=== PATIENT | female | born 1965 | race Caucasian/White ===

== ENCOUNTER 2016-10-09 15:49 | Emergency (ER) | payer MEDICARE ==
[~2016-10-09] VITALS: Ht 154.9 cm; Wt 53.5 kg
[~2016-10-09 15:49] MED LIST: AMITRIPTYLINE 550 MG PO; AMITRIPTYLINE25 MG PO; AMITRIPTYLINE50 MG PO; AMLODIPINE10 MG PO; BACTRIM DS TAB1 EACH PO; BENADRYL 25MG C25 MG PO; CUBICIN 500 MG500 MG IV; CYMBALTA60 MG PO; DILAUDID1 MG/M1 IJ; EFFEXOR XR 75MG75 MG PO; FUROSEMIDE 40MG40 MG FT; INVANZ 1 GM1 GM IV; KEFLEX 500MG.500 MG PO; LASIX40 MG PO; LEVOTHROID0.025 MG PO; LISINOPRIL 5MG T5 MG PO; LISINOPRIL2.5 MG PO; LYRICA 100 MG100 MG PO; MUPIROCIN 2% O1 INCH TP; NAPROSYN375 MG PO; NEXIUM40 MG PO; OMEPRAZOLE20 M1 PO; PHENERGAN25 M3 PO; POLYMYXIN B/TRI10 ML OP; PROAIR HFA0.09 MG/AC IH; SIMVASTATIN20 MG PO; SYNTHROID 0.00.05 MG PO; TRAZODONE 50MG50 MG PO; VANCOMYCIN HC1000 MG IV; VENLAFAXINE75 M1 PO; VENTOLIN H0.09 MG/Ac IH
--- OUTSIDE RECORDS SUMMARY | 2016-10-09 15:57 | External Medical Summary Rpt ---
Author Author , CONNOR Vivas CONNOR Address Unknown Phone [email or web address] Care Team Providers Care [employer] Ware [employer] Name Role Phone Reg Tovar MD, Unavailable Unavailable Reg Wall MD, Unavailable Unavailable Hero Gonzalez MD, Unavailable Unavailable Sherri Gonzalez MD Purpose Continuity of Care Document - 11-15-2012 through 2016 Problems Code Diagnosis DOS Provider Status 244.9 Hypothyroid [facility] 272.4 Hyperlipide [facility] [id number] Fever [facility] 401.9 Essential [place] hypertensio [facility] n [facility] [id number] Obesity [facility] 457.1 Chronic [facility] lymphedema [facility] [id number] Active [facility] 682.6 Cellulitis [place] and abscess [facility] leg [facility] 682.9 Cellulitis [facility] 780.96 Chronic [facility] [id number] [facility] I10 ESSENTIAL (PRIMARY) HYPERTENSIO N I63.9 CEREBRAL INFARCTION, UNSPECIFIED I89.0 LYMPHEDEMA, NOT ELSEWHERE CLASSIFIED L03.119 CELLULITIS OF UNSPECIFIED PART OF LIMB L03.90 CELLULITIS, UNSPECIFIED R07.9 CHEST PAIN, UNSPECIFIED R10.13 EPIGASTRIC PAIN S00.83XA CONTUSION OF OTHER PART OF HEAD, INITIAL ENCOUNTER S06.0X9A CONCUSSION W LOSS OF CONSCIOUSNE SS OF UNSP DURATION, INIT S60.229A CONTUSION OF UNSPECIFIED HAND, INITIAL ENCOUNTER S90.30XA CONTUSION OF UNSPECIFIED FOOT, INITIAL ENCOUNTER Allergies, Adverse Reactions, Alerts Type Allergy to substance Adverse Reaction to Substance Substance Reaction Severity NO KNOWN ALLERGIES Unknown Unknown Medications Na ND Rx Da Fi Fi Am Da Di Ph RX Ph St me C No te ll ll ou ys ag ar # ys at rm s nt no ma ic us Or Da si cy ia de te s n re d IN 00 10 0 No VA 00 -0 NZ 63 9- Lo 1 84 20 ng 57 13 er GM 1 Ac AD ti D- ve VA NT AG E AL SO 00 10 0 No DI 40 -0 UM 97 9- Lo 10 20 ng CH 16 13 er LO 6 RI Ac DE ti ve 0. 9% SO LN CU 67 10 2 No BI 91 -0 CI 90 8- Lo N 01 20 ng 50 10 13 er 0 1 MG Ac ti ve AL SO 00 10 2 No DI 40 -0 UM 97 8- Lo 98 20 ng CH 43 13 er LO 6 RI Ac DE ti ve 0. 9% SO KEY TI ON LO 00 10 2 No VE 07 -0 NO 50 8- Lo X 62 20 ng 40 04 13 er 1 MG Ac /0 ti .4 ve ML SY RI NG E PA 51 10 2 No NT 07 -0 OP 90 8- Lo RA 05 20 ng ZO 12 13 er LE 0 Ac SO ti D ve DR 40 MG TA B Du 00 10 2 No lo 00 -0 xe 23 8- Lo ti 24 20 ng ne 03 13 er 3 30 Ac MG ti ve Ca ps ul e FU 51 10 2 No RO 07 -0 SE 90 8- Lo VT 07 20 ng DE 32 13 er 0 40 Ac ti MG ve TA BL ET Li 00 10 2 No si 17 -0 no 23 8- Lo pr 75 20 ng il 81 13 er 0 5M Ac G ti Ta ve bl et SY 00 10 2 No NT 07 -0 HR 44 8- Lo OI 34 20 ng D 19 13 er 25 0 Ac MC ti G ve TA BL ET PI 00 10 2 No PE 40 -0 RA 93 7- Lo CI 37 20 ng L- 81 13 er TA 3 ZO Ac BA ti CT ve 3. 37 5 GM VL SO 00 10 3 No DI 40 -0 UM 97 7- Lo 98 20 ng CH 30 13 er LO 9 RI Ac DE ti ve 0. 9% SO KEY TI ON FU 00 10 0 No RO 40 -0 SE 96 7- Lo VT 10 20 ng DE 20 13 er 4 40 Ac ti MG ve /4 ML AL Sa 63 10 3 No li 80 -0 ne 70 7- Lo 10 20 ng Fl 07 13 er us 5 h Ac 10 ti ML ve Sy ri ng e MA 00 10 0 No PA 90 -0 P 41 7- Lo 32 98 20 ng 5 26 13 er MG 1 Ac TA ti BL ve ET Ib 62 10 0 No up 58 -0 ro 40 7- Lo fe 74 20 ng n 70 13 er 60 1 0M Ac G ti Ta ve bl et Sa 63 10 0 No li 80 -0 ne 70 7- Lo 10 20 ng Fl 07 13 er us 5 h Ac 10 ti ML ve Sy ri ng e MO 00 10 3 No OM 64 -0 ET 11 7- Lo MONTERROSO 49 20 ng ZI 53 13 er NE 5 Ac 25 ti ve MG /M L AM PU L LY 00 10 3 No RI 07 -0 CA 11 7- Lo 01 20 ng 10 56 13 er 0 8 MG Ac ti CA ve PS UL E AM 51 10 3 No IT 07 -0 RI 90 7- Lo PT 10 20 ng YL 72 13 er IN 0 E Ac HC ti L ve 25 MG TA B MO 00 10 1 No OT 00 -0 ON 80 7- Lo IX 84 20 ng 40 13 er 40 2 Ac MG ti ve KNIGHT SP EN SI ON DI 00 10 3 No PH 90 -0 EN 45 7- Lo HY [address] 66 13 er AM 1 IN Ac E ti 25 ve MG CA PS UL E SO 00 10 0 No DI 40 -0 UM 97 6- Lo 98 20 ng CH 30 13 er LO 9 RI Ac DE ti ve 0. 9% SO KEY TI ON DE 00 10 0 No XT 40 -0 RO 97 6- Lo SE 51 20 ng 71 13 er 50 6 %- Ac WA ti TE ve R SY RI NG E Sa 63 10 0 No li 80 -0 ne 70 6- Lo 10 20 ng Fl 07 13 er us 5 h Ac 10 ti ML ve Sy ri ng e MA 00 10 0 No PA 90 -0 P 41 6- Lo 32 98 20 ng 5 26 13 er MG 1 Ac TA ti BL ve ET Sa 63 10 1 No li 80 -0 ne 70 4- Lo 10 20 ng Fl 07 13 er us 5 h Ac 10 ti ML ve Sy ri ng e FU 00 10 0 No RO 40 -0 SE 96 4- Lo VT 10 20 ng DE 20 13 er 4 40 Ac ti MG ve /4 ML AL MO 51 09 1 No OM 07 -0 ET 90 6- Lo MONTERROSO 89 20 ng ZI 52 13 er NE 0 Ac 25 ti ve MG TA BL ET VA 00 09 2 No NC 40 -0 OM 96 5- Lo YC 53 20 ng IN 30 13 er 1 1 Ac GM ti ve AL SO 00 09 2 No DI 40 -0 UM 97 5- Lo 98 20 ng CH 30 13 er LO 2 RI Ac DE ti ve 0. 9% SO KEY TI ON Du 00 09 0 No lo 00 -0 xe 23 5- Lo ti 24 20 ng ne 03 13 er 3 30 Ac MG ti ve Ca ps ul e FU 51 09 2 No RO 07 -0 SE 90 5- Lo VT 07 20 ng DE 32 13 er 0 40 Ac ti MG ve TA BL ET Li 00 09 2 No si 17 -0 no 23 5- Lo pr 75 20 ng il 81 13 er 0 5M Ac G ti Ta ve bl et Du 00 09 2 No lo 00 -0 xe 23 5- Lo ti 24 20 ng ne 03 13 er 3 30 Ac MG ti ve Ca ps ul e IN [address] -0 RU 5- Lo CT 20 ng IO 13 er N IN Ac FO ti RM ve AT IO N EF 00 09 2 No FE 00 -0 XO 80 5- Lo R 83 20 ng XR 30 13 er 3 75 Ac ti MG ve CA PS UL E VA 00 09 1 No NC 40 -0 OM 96 4- Lo YC 53 20 ng IN 30 13 er 1 1 Ac GM ti ve AL SO 00 09 3 No DI 40 -0 UM 97 4- Lo 98 20 ng CH 42 13 er LO 0 RI Ac DE ti ve 0. 9% SO KEY TI ON LO 00 09 3 No VE 07 -0 NO 50 4- Lo X 62 20 ng 40 04 13 er 1 MG Ac /0 ti .4 ve ML SY RI NG E SY 00 09 3 No NT 07 -0 HR 44 4- Lo OI 34 20 ng D 19 13 er 25 0 Ac MC ti G ve TA BL ET MO 00 09 2 No OM 64 -0 ET 11 4- Lo MONTERROSO 49 20 ng ZI 53 13 er NE 5 Ac 25 ti ve MG /M L AM PU L AM 51 09 3 No IT 07 -0 RI 90 4- Lo PT 10 20 ng YL 72 13 er IN 0 E Ac HC ti L ve 25 MG TA B MU 45 09 3 No PI 80 -0 RO 20 4- Lo CI 11 20 ng N 22 13 er 2% 2 Ac OI ti NT ve ME NT PA 51 09 3 No NT 07 -0 OP 90 4- Lo RA 05 20 ng ZO 12 13 er LE 0 Ac SO ti D ve DR 40 MG TA B MO 51 09 3 No AV 07 -0 90 4- Lo TA 78 20 ng TI 22 13 er N 0 SO Ac DI ti UM ve 40 MG TA B LY 00 09 3 No RI 07 -0 CA 11 4- Lo 01 20 ng 10 56 13 er 0 8 MG Ac ti CA ve PS UL E TR 51 09 3 No IA 67 -0 MC 21 4- Lo IN 28 20 ng OL 20 13 er ON 2 E Ac 0. ti 1% ve CR EA M Vital Signs 12-21-2012 15:55 Name Value Interpretat Reference Comment ion Range Body 97.6 [degF] Temperature BP 57 mm[Hg] Diastolic BP Systolic 97 mm[Hg] Heart 77 /min Rate/Pulse Respiratory 18 /min Rate 12-21-2012 08:00 Name Value Interpretat Reference Comment ion Range O2% 98 % 12-18-2012 19:15 Name Value Interpretat Reference Comment ion Range Height 157.48 cm Weight 99.792 kg Measured 12-18-2012 15:34 Name Value Interpretat Reference Comment ion Range Body 99.6 [degF] Temperature BP 108 mm[Hg] Diastolic BP Systolic 150 mm[Hg] Heart 130 /min Rate/Pulse O2% 96 % Respiratory 40 /min Rate Weight 0 [oz_av] Measured 12-17-2012 20:20 Name Value Interpretat Reference Comment ion Range Body 99.7 [degF] Temperature BP 81 mm[Hg] Diastolic BP Systolic 162 mm[Hg] Heart 100 /min Rate/Pulse O2% 98 % Respiratory 20 /min Rate 12-17-2012 18:47 Name Value Interpretat Reference Comment ion Range Body 102.9 Temperature [degF] BP 79 mm[Hg] Diastolic BP Systolic 150 mm[Hg] Heart 96 /min Rate/Pulse O2% 98 % Respiratory 20 /min Rate 12-16-2012 00:28 Name Value Interpretat Reference Comment ion Range BP 76 mm[Hg] Diastolic BP Systolic 134 mm[Hg] Heart 82 /min Rate/Pulse O2% 99 % Respiratory 18 /min Rate 12-15-2012 20:30 Name Value Interpretat Reference Comment ion Range Body 98.0 [degF] Temperature BP 92 mm[Hg] Diastolic BP Systolic 142 mm[Hg] Heart 88 /min Rate/Pulse O2% 98 % Respiratory 26 /min Rate 11-30-2012 14:38 Name Value Interpretat Reference Comment ion Range Body 98.2 [degF] Temperature BP 74 mm[Hg] Diastolic BP Systolic 129 mm[Hg] Heart 77 /min Rate/Pulse O2% 99 % Respiratory 20 /min Rate 11-18-2012 07:48 Name Value Interpretat Reference Comment ion Range Body 98.6 [degF] Temperature BP 70 mm[Hg] Diastolic BP Systolic 123 mm[Hg] Heart 83 /min Rate/Pulse O2% 92 % Respiratory 20 /min Rate 11-15-2012 15:07 Name Value Interpretat Reference Comment ion Range O2% 96 % 11-15-2012 10:05 Name Value Interpretat Reference Comment ion Range Body 97.5 [degF] Temperature BP 65 mm[Hg] Diastolic BP Systolic 111 mm[Hg] Heart 74 /min Rate/Pulse Height 154.94 cm Respiratory 18 /min Rate Weight 211 [lb_av] Measured Weight 95.709 kg Measured Results Labs Lab Lab Date Result Refere Interp Status Commen Order Detail nces retati t Range on Drugs identified in Urine by Screen method (08-24-2016 16:04) Ampheta NEGATIV <1000 complet mine 017 E ed [Presen 16:04 ce] in Urine by Screen method 11-Hydr NEGATIV <50 complet oxy 017 E ed delta-9 16:04 tetrahy drocann abinol [Presen ce] in Unspeci fied specime n COMPREHENSIVE METABOLIC PANEL (12-20-2012 05:30) Glucose 85 74-106 complet 013 mg/dL ed Bld-mCn 05:30 c BUN 13 7-18 complet Bld-mCn 013 mg/dL ed c 05:30 Creat 1.0 0.6-1.0 complet SerPl-m 013 mg/dL ed Cnc 05:30 ESTIMAT 108 50-200 complet ED 013 ML/MIN ed CREATIN 05:30 INE CLEARAN CE GFR 59 59- complet (ESTIMA 013 ML/MIN ed WILFREDO) 05:30 Sodium 139 136-145 complet SerPl-s 013 mmoL/L ed Cnc 05:30 Potassi 3.4 3.5-5.1 complet um 013 mmoL/L ed SerPl-s 05:30 Cnc Chlorid 105 98-107 complet e 013 mmoL/L ed SerPl-s 05:30 Cnc CO2 26 21.0-32 complet SerPl-s 013 mmoL/L .0 ed Cnc 05:30 Calcium 6.9 8.5-10. complet 013 mg/dL 1 ed SerPl-m 05:30 Cnc Prot 5.4 6.4-8.2 complet SerPl-m 013 gm/dL ed Cnc 05:30 Albumin 2.2 3.4-5.0 complet 013 gm/dL ed SerPl-m 05:30 Cnc Globuli 3.2 1.3-3.2 complet n 013 gm/dL ed Ser-mCn 05:30 c Albumin 0.7 UNK 1.1-1.8 complet /Glob 013 ed SerPl-m 05:30 Rto Bilirub 0.3 0.2-1.0 complet 013 mg/dL ed SerPl-m 05:30 Cnc AST 31 U/L 15-37 complet SerPl-c 013 ed Cnc 05:30 ALT 34 U/L 30-65 complet SerPl-c 013 ed Cnc 05:30 ALP 98 U/L 50-136 complet SerPl-c 013 ed Cnc 05:30 CBC with AUTO DIFF (12-20-2012 05:30) WBC # 12-20-2 2.6 4.8-10. complet Bld 013 K/MM3 8 ed Auto 05:30 RBC # 12-20-2 2.96 4.2-5.4 complet Bld 013 M/mm3 ed Auto 05:30 Hgb 8.3 12.2-16 complet Bld-mCn 013 g/dL .2 ed c 05:30 Hct Fr 26.1 % 37.0-47 complet Bld 013 .0 ed 05:30 MCV RBC 88.2 fl 82.2-97 complet 013 .8 ed 05:30 MCH RBC 28.1 pg 27-31.2 complet Qn 013 ed Auto 05:30 MEAN 31.8 31.8-35 complet CORPUSC 013 g/dl .4 ed ULAR 05:30 HGB CONC RDW RBC 16.7 % 11.5-17 complet Auto 013 .5 ed 05:30 Platele 12-20-2 99 142-424 complet t Bld 013 K/mm3 ed Ql 05:30 Manual MEAN 9.4 fl 7.4-10. complet PLATELE 013 4 ed T 05:30 VOLUME Granulo 49.3 % 37.0-80 complet cytes 013 .0 ed Fr Bld 05:30 Auto LYMPH % 09-2 35.8 % 10-50.0 complet 013 ed 05:30 Monocyt 12-20-2 9.3 % 1.7-9.3 complet es Fr 013 ed Bld 05:30 Auto Eosinop 5.1 % 0.1-12. complet hil Fr 013 0 ed Bld 05:30 Auto Basophi 0.5 % 0.1-2.0 complet ls Fr 013 ed Bld 05:30 Auto Granulo 1.3 1.8-7.8 complet cytes # 013 K/mm3 ed Bld 05:30 Auto Lymphoc 12-20-2 0.9 0.7-4.5 complet ytes Fr 013 K/mm3 ed Bld 05:30 Auto Monocyt 12-20-2 0.2 0.1-1.0 complet es # 013 K/mm3 ed Bld 05:30 Auto Eosinop 12-20-2 0.1 0.0-0.4 complet hil # 013 K/mm3 ed Bld 05:30 Auto Basophi 12-20-2 0.0 0-0.2 complet ls # 013 K/MM3 ed Bld 05:30 Auto BASIC METABOLIC PANEL (12-19-2012 06:35) Glucose 89 74-106 complet 013 mg/dL ed Bld-mCn 06:35 c BUN 14 7-18 complet Bld-mCn 013 mg/dL ed c 06:35 Creat 1.2 0.6-1.0 complet SerPl-m 013 mg/dL ed Cnc 06:35 ESTIMAT 90 50-200 complet ED 013 ML/MIN ed CREATIN 06:35 INE CLEARAN CE GFR 48 59- complet (ESTIMA 013 ML/MIN ed WILFREDO) 06:35 Sodium 139 136-145 complet SerPl-s 013 mmoL/L ed Cnc 06:35 Potassi 3.5 3.5-5.1 complet um 013 mmoL/L ed SerPl-s 06:35 Cnc Chlorid 104 98-107 complet e 013 mmoL/L ed SerPl-s 06:35 Cnc CO2 27 21.0-32 complet SerPl-s 013 mmoL/L .0 ed Cnc 06:35 Calcium 7.0 8.5-10. complet 013 mg/dL 1 ed SerPl-m 06:35 Cnc CBC with AUTO DIFF (12-19-2012 06:35) WBC # 08-2 2.2 4.8-10. complet Bld 013 K/MM3 8 ed Auto 06:35 RBC # 08-2 3.23 4.2-5.4 complet Bld 013 M/mm3 ed Auto 06:35 Hgb 9.0 12.2-16 complet Bld-mCn 013 g/dL .2 ed c 06:35 Hct Fr 29.1 % 37.0-47 complet Bld 013 .0 ed 06:35 MCV RBC 90.2 fl 82.2-97 complet 013 .8 ed 06:35 MCH RBC 27.8 pg 27-31.2 complet Qn 013 ed Auto 06:35 MEAN 30.8 31.8-35 complet CORPUSC 013 g/dl .4 ed ULAR 06:35 HGB CONC RDW RBC 17.0 % 11.5-17 complet Auto 013 .5 ed 06:35 Platele 81 142-424 complet t Bld 013 K/mm3 ed Ql 06:35 Manual MEAN 10.9 fl 7.4-10. complet PLATELE 013 4 ed T 06:35 VOLUME Granulo 73.2 % 37.0-80 complet cytes 013 .0 ed Fr Bld 06:35 Auto LYMPH % 08-2 17.9 % 10-50.0 complet 013 ed 06:35 Monocyt 10-08-2 6.3 % 1.7-9.3 complet es Fr 013 ed Bld 06:35 Auto Eosinop 10-08-2 2.0 % 0.1-12. complet hil Fr 013 0 ed Bld 06:35 Auto Basophi 10-08-2 0.4 % 0.1-2.0 complet ls Fr 013 ed Bld 06:35 Auto Granulo 10-08-2 1.6 1.8-7.8 complet cytes # 013 K/mm3 ed Bld 06:35 Auto Lymphoc 10-08-2 0.4 0.7-4.5 complet ytes Fr 013 K/mm3 ed Bld 06:35 Auto Monocyt 10-08-2 0.1 0.1-1.0 complet es # 013 K/mm3 ed Bld 06:35 Auto Eosinop 10-08-2 0.0 0.0-0.4 complet hil # 013 K/mm3 ed Bld 06:35 Auto Basophi 10-08-2 0.0 0-0.2 complet ls # 013 K/MM3 ed Bld 06:35 Auto Glucose BldC [facility] (12-18-2012 18:08) Glucose 97 70-110 complet BldC 013 mg/dl ed Glucomt 18:08 r-[facility] URINALYSIS/COMPLETE (12-18-2012 17:00) URINE LIGHT YELLOW complet COLOR 013 YELLOW ed 17:00 URINE Sl CLEAR complet APPEARA 013 Cloudy ed NCE 17:00 URINE NEGATIV NEG complet GLUCOSE 013 E ed - 17:00 DIPSTIC K URINE NEGATIV NEG complet BILIRUB 013 E ed IN - 17:00 DIPSTIC K URINE NEGATIV NEG complet KETONE 013 E mg/dL ed 17:00 URINE 1.015 1.005-1 complet SPECIFI 013 UNK .030 ed C 17:00 GRAVITY URINE NEGATIV NEG complet BLOOD 013 E ed 17:00 URINE 5.5 UNK 5.0-8.5 complet PH 013 ed 17:00 URINE NEGATIV NEG complet PROTEIN 013 E mg/dL ed - 17:00 DIPSTIC K URINE 0.2 NEG complet UROBILI 013 E.U./dL ed NOGEN - 17:00 DIPSTIC K URINE NEGATIV NEG complet NITRATE 013 E ed - 17:00 DIPSTIC K URINE NEGATIV NEG complet LEUK 013 E ed ESTERAS 17:00 E URINE OCC O complet WBC 013 wbc/hpf ed 17:00 URINE OCC 0-5 complet SQUAMOU 013 #/hpf ed S CELLS 17:00 URINE 1+ O complet BACTERI 013 ed A 17:00 BASIC METABOLIC PANEL (12-18-2012 15:50) Glucose 57 74-106 complet 013 mg/dL ed Bld-mCn 15:50 c BUN 6 mg/dL 7-18 complet Bld-mCn 013 ed c 15:50 Creat 1.0 0.6-1.0 complet SerPl-m 013 mg/dL ed Cnc 15:50 ESTIMAT 88 50-200 complet ED 013 ML/MIN ed CREATIN 15:50 INE CLEARAN CE GFR 59 59- complet (ESTIMA 013 ML/MIN ed WILFREDO) 15:50 Sodium 139 136-145 complet SerPl-s 013 mmoL/L ed Cnc 15:50 Potassi 3.8 3.5-5.1 complet um 013 mmoL/L ed SerPl-s 15:50 Cnc Chlorid 103 98-107 complet e 013 mmoL/L ed SerPl-s 15:50 Cnc CO2 24 21.0-32 complet SerPl-s 013 mmoL/L .0 ed Cnc 15:50 Calcium 7.4 8.5-10. complet 013 mg/dL 1 ed SerPl-m 15:50 Cnc CBC with AUTO DIFF (12-18-2012 15:50) WBC # 12-18-2 3.8 4.8-10. complet Bld 013 K/MM3 8 ed Auto 15:50 RBC # 12-18-2 4.00 4.2-5.4 complet Bld 013 M/mm3 ed Auto 15:50 Hgb 10-07-2 11.2 12.2-16 complet Bld-mCn 013 g/dL .2 ed c 15:50 Hct Fr 12-18-2 35.7 % 37.0-47 complet Bld 013 .0 ed 15:50 MCV RBC 10-07-2 89.3 fl 82.2-97 complet 013 .8 ed 15:50 MCH RBC 07-2 28.0 pg 27-31.2 complet Qn 013 ed Auto 15:50 MEAN 07-2 31.4 31.8-35 complet CORPUSC 013 g/dl .4 ed ULAR 15:50 HGB CONC RDW RBC 07-2 16.8 % 11.5-17 complet Auto 013 .5 ed 15:50 Platele -07-2 118 142-424 complet t Bld 013 K/mm3 ed Ql 15:50 Manual MEAN 07-2 8.7 fl 7.4-10. complet PLATELE 013 4 ed T 15:50 VOLUME Granulo -07-2 84.8 % 37.0-80 complet cytes 013 .0 ed Fr Bld 15:50 Auto LYMPH % 10-07-2 12.0 % 10-50.0 complet 013 ed 15:50 Monocyt 10-07-2 2.5 % 1.7-9.3 complet es Fr 013 ed Bld 15:50 Auto Eosinop 10-07-2 0.6 % 0.1-12. complet hil Fr 013 0 ed Bld 15:50 Auto Basophi 10-07-2 0.2 % 0.1-2.0 complet ls Fr 013 ed Bld 15:50 Auto Granulo 10-07-2 3.2 1.8-7.8 complet cytes # 013 K/mm3 ed Bld 15:50 Auto Lymphoc 10-07-2 0.4 0.7-4.5 complet ytes Fr 013 K/mm3 ed Bld 15:50 Auto Monocyt 10-07-2 0.1 0.1-1.0 complet es # 013 K/mm3 ed Bld 15:50 Auto Eosinop 10-07-2 0.0 0.0-0.4 complet hil # 013 K/mm3 ed Bld 15:50 Auto Basophi 10-07-2 0.0 0-0.2 complet ls # 013 K/MM3 ed Bld 15:50 Auto Glucose dC [facility] (12-17-2012 19:50) Glucose 108 70-110 complet BldC 013 mg/dl ed Glucomt 19:50 r-[facility] COMPREHENSIVE METABOLIC PANEL (12-17-2012 18:30) Glucose 71 74-106 complet 013 mg/dL ed Bld-mCn 18:30 c BUN 6 mg/dL 7-18 complet Bld-mCn 013 ed c 18:30 Creat 0.9 0.6-1.0 complet SerPl-m 013 mg/dL ed Cnc 18:30 ESTIMAT 97 50-200 complet ED 013 ML/MIN ed CREATIN 18:30 INE CLEARAN CE GFR 67 59- complet (ESTIMA 013 ML/MIN ed WILFREDO) 18:30 Sodium 142 136-145 complet SerPl-s 013 mmoL/L ed Cnc 18:30 Potassi 3.9 3.5-5.1 complet um 013 mmoL/L ed SerPl-s 18:30 Cnc Chlorid 107 98-107 complet e 013 mmoL/L ed SerPl-s 18:30 Cnc CO2 27 21.0-32 complet SerPl-s 013 mmoL/L .0 ed Cnc 18:30 Calcium 7.5 8.5-10. complet 013 mg/dL 1 ed SerPl-m 18:30 Cnc Prot 6.4 6.4-8.2 complet SerPl-m 013 gm/dL ed Cnc 18:30 Albumin 2.7 3.4-5.0 complet 013 gm/dL ed SerPl-m 18:30 Cnc Globuli 3.7 1.3-3.2 complet n 013 gm/dL ed Ser-mCn 18:30 c Albumin 0.7 UNK 1.1-1.8 complet /Glob 013 ed SerPl-m 18:30 Rto Bilirub 0.5 0.2-1.0 complet 013 mg/dL ed SerPl-m 18:30 Cnc AST 25 U/L 15-37 complet SerPl-c 013 ed Cnc 18:30 ALT 25 U/L 30-65 complet SerPl-c 013 ed Cnc 18:30 ALP 109 U/L 50-136 complet SerPl-c 013 ed Cnc 18:30 LIPASE (12-17-2012 18:30) LIPASE 87 U/L 73-393 complet 013 ed 18:30 CBC with AUTO DIFF (12-17-2012 18:30) WBC # 1006-2 4.6 4.8-10. complet Bld 013 K/MM3 8 ed Auto 18:30 RBC # 12-17-2 3.41 4.2-5.4 complet Bld 013 M/mm3 ed Auto 18:30 Hgb 12-17- 9.8 12.2-16 complet Bld-mCn 013 g/dL .2 ed c 18:30 Hct Fr 30.4 % 37.0-47 complet Bld 013 .0 ed 18:30 MCV RBC 89.1 fl 82.2-97 complet 013 .8 ed 18:30 MCH RBC 28.6 pg 27-31.2 complet Qn 013 ed Auto 18:30 MEAN 32.1 31.8-35 complet CORPUSC 013 g/dl .4 ed ULAR 18:30 HGB CONC RDW RBC 12-17- 17.1 % 11.5-17 complet Auto 013 .5 ed 18:30 Platele 127 142-424 complet t Bld 013 K/mm3 ed Ql 18:30 Manual MEAN 9.0 fl 7.4-10. complet PLATELE 013 4 ed T 18:30 VOLUME Granulo 86.2 % 37.0-80 complet cytes 013 .0 ed Fr Bld 18:30 Auto LYMPH % 12-17-2 8.8 % 10-50.0 complet 013 ed 18:30 Monocyt 12-17-2 3.2 % 1.7-9.3 complet es Fr 013 ed Bld 18:30 Auto Eosinop 2 1.6 % 0.1-12. complet hil Fr 013 0 ed Bld 18:30 Auto Basophi 10-06-2 0.2 % 0.1-2.0 complet ls Fr 013 ed Bld 18:30 Auto Granulo 12-17-2 3.9 1.8-7.8 complet cytes # 013 K/mm3 ed Bld 18:30 Auto Lymphoc 12-17-2 0.4 0.7-4.5 complet ytes Fr 013 K/mm3 ed Bld 18:30 Auto Monocyt 06-2 0.1 0.1-1.0 complet es # 013 K/mm3 ed Bld 18:30 Auto Eosinop 12-17-2 0.1 0.0-0.4 complet hil # 013 K/mm3 ed Bld 18:30 Auto Basophi 12-17-2 0.0 0-0.2 complet ls # 013 K/MM3 ed Bld 18:30 Auto URINALYSIS/COMPLETE (12-15-2012 20:20) URINE 12-15- YELLOW YELLOW complet COLOR 013 ed 20:20 URINE CLEAR CLEAR complet APPEARA 013 ed NCE 20:20 URINE NEGATIV NEG complet GLUCOSE 013 E ed - 20:20 DIPSTIC K URINE 1+ NEG complet BILIRUB 013 ed IN - 20:20 DIPSTIC K URINE 12-15-2 1+ NEG complet KETONE 013 mg/dL ed 20:20 URINE 2 1.025 1.005-1 complet SPECIFI 013 UNK .030 ed C 20:20 GRAVITY URINE NEGATIV NEG complet BLOOD 013 E ed 20:20 URINE 7.0 UNK 5.0-8.5 complet PH 013 ed 20:20 URINE 12-15-2 TRACE NEG complet PROTEIN 013 mg/dL ed - 20:20 DIPSTIC K URINE 12-15-2 4.0 NEG complet UROBILI 013 E.U./dL ed NOGEN - 20:20 DIPSTIC K URINE 12-15-2 NEGATIV NEG complet NITRATE 013 E ed - 20:20 DIPSTIC K URINE 12-15-2 NEGATIV NEG complet LEUK 013 E ed ESTERAS 20:20 E URINE 12-15- 5-10 0-5 complet SQUAMOU 013 #/hpf ed S CELLS 20:20 URINE 10-04-2 TRACE O complet BACTERI 013 ed A 20:20 COMPREHENSIVE METABOLIC PANEL (12-15-2012 20:00) Glucose 104 74-106 complet 013 mg/dL ed Bld-mCn 20:00 c BUN 8 mg/dL 7-18 complet Bld-mCn 013 ed c 20:00 Creat 0.9 0.6-1.0 complet SerPl-m 013 mg/dL ed Cnc 20:00 ESTIMAT 109 50-200 complet ED 013 ML/MIN ed CREATIN 20:00 INE CLEARAN CE GFR 67 59- complet (ESTIMA 013 ML/MIN ed WILFREDO) 20:00 Sodium 143 136-145 complet SerPl-s 013 mmoL/L ed Cnc 20:00 Potassi 4.0 3.5-5.1 complet um 013 mmoL/L ed SerPl-s 20:00 Cnc Chlorid 108 98-107 complet e 013 mmoL/L ed SerPl-s 20:00 Cnc CO2 28 21.0-32 complet SerPl-s 013 mmoL/L .0 ed Cnc 20:00 Calcium 7.7 8.5-10. complet 013 mg/dL 1 ed SerPl-m 20:00 Cnc Prot 6.3 6.4-8.2 complet SerPl-m 013 gm/dL ed Cnc 20:00 Albumin 2.7 3.4-5.0 complet 013 gm/dL ed SerPl-m 20:00 Cnc Globuli 3.6 1.3-3.2 complet n 013 gm/dL ed Ser-mCn 20:00 c Albumin 0.8 UNK 1.1-1.8 complet /Glob 013 ed SerPl-m 20:00 Rto Bilirub 0.5 0.2-1.0 complet 013 mg/dL ed SerPl-m 20:00 Cnc AST 20 U/L 15-37 complet SerPl-c 013 ed Cnc 20:00 ALT 24 U/L 30-65 complet SerPl-c 013 ed Cnc 20:00 ALP 12-15-2 99 U/L 50-136 complet SerPl-c 013 ed Cnc 20:00 CBC with AUTO DIFF (12-15-2012 20:00) WBC # 10-04-2 3.6 4.8-10. complet Bld 013 K/MM3 8 ed Auto 20:00 RBC # 10-04-2 3.62 4.2-5.4 complet Bld 013 M/mm3 ed Auto 20:00 Hgb 12-15-2 10.1 12.2-16 complet Bld-mCn 013 g/dL .2 ed c 20:00 Hct Fr 32.4 % 37.0-47 complet Bld 013 .0 ed 20:00 MCV RBC 12-15- 89.5 fl 82.2-97 complet 013 .8 ed 20:00 MCH RBC 12-15-2 27.9 pg 27-31.2 complet Qn 013 ed Auto 20:00 MEAN 12-15-2 31.1 31.8-35 complet CORPUSC 013 g/dl .4 ed ULAR 20:00 HGB CONC RDW RBC 12-15-2 16.5 % 11.5-17 complet Auto 013 .5 ed 20:00 Platele 2 142 142-424 complet t Bld 013 K/mm3 ed Ql 20:00 Manual MEAN 2 8.8 fl 7.4-10. complet PLATELE 013 4 ed T 20:00 VOLUME Granulo 12-15-2 56.8 % 37.0-80 complet cytes 013 .0 ed Fr Bld 20:00 Auto LYMPH % 12-15-2 29.7 % 10-50.0 complet 013 ed 20:00 Monocyt --2 6.1 % 1.7-9.3 complet es Fr 013 ed Bld 20:00 Auto Eosinop 12-15-2 7.2 % 0.1-12. complet hil Fr 013 0 ed Bld 20:00 Auto Basophi 12-15-2 0.3 % 0.1-2.0 complet ls Fr 013 ed Bld 20:00 Auto Granulo --2 2.1 1.8-7.8 complet cytes # 013 K/mm3 ed Bld 20:00 Auto Lymphoc 12-15-2 1.1 0.7-4.5 complet ytes Fr 013 K/mm3 ed Bld 20:00 Auto Monocyt 04-2 0.2 0.1-1.0 complet es # 013 K/mm3 ed Bld 20:00 Auto Eosinop 04-2 0.3 0.0-0.4 complet hil # 013 K/mm3 ed Bld 20:00 Auto Basophi 12-15-2 0.0 0-0.2 complet ls # 013 K/MM3 ed Bld 20:00 Auto Vancomycin Trough SerPl-mCnc (11-18-2012 08:30) Vancomy 27.7 10.0-20 complet margy 013 mcg/mL .0 ed Trough 08:30 SerPl-m [facility] CREATININE (11-18-2012 08:30) Creat 1.0 0.6-1.0 complet SerPl-m 013 mg/dL ed Cnc 08:30 Creat 104 50-200 complet Cl 013 ML/MIN ed predict 08:30 ed SerPl C-G-vRa te GFR/BSA 59 59- complet .pred 013 ML/MIN ed SerPl 08:30 Schwart z-vRate Vancomycin Trough SerPl-mCnc (11-16-2012 14:30) Vancomy 18.7 10.0-20 complet margy 013 mcg/mL .0 ed Trough 14:30 SerPl-m [facility] BASIC METABOLIC PANEL (11-16-2012 06:00) Glucose 81 74-106 complet 013 mg/dL ed Bld-mCn 06:00 c BUN 10 7-18 complet Bld-mCn 013 mg/dL ed c 06:00 Creat 1.1 0.6-1.0 complet SerPl-m 013 mg/dL ed Cnc 06:00 ESTIMAT 94 50-200 complet ED 013 ML/MIN ed CREATIN 06:00 INE CLEARAN CE GFR 53 59- complet (ESTIMA 013 ML/MIN ed WILFREDO) 06:00 Sodium 143 136-145 complet SerPl-s 013 mmoL/L ed Cnc 06:00 Potassi 3.9 3.5-5.1 complet um 013 mmoL/L ed SerPl-s 06:00 Cnc Chlorid 107 98-107 complet e 013 mmoL/L ed SerPl-s 06:00 Cnc CO2 31 21.0-32 complet SerPl-s 013 mmoL/L .0 ed Cnc 06:00 Calcium 7.4 8.5-10. complet 013 mg/dL 1 ed SerPl-m 06:00 Cnc CBC with AUTO DIFF (11-16-2012 06:00) WBC # 11-16- 2.9 4.8-10. complet Bld 013 K/MM3 8 ed Auto 06:00 RBC # 3.54 4.2-5.4 complet Bld 013 M/mm3 ed Auto 06:00 Hgb 10.2 12.2-16 complet Bld-mCn 013 g/dL .2 ed c 06:00 Hct Fr 32.7 % 37.0-47 complet Bld 013 .0 ed 06:00 MCV RBC 92.3 fl 82.2-97 complet 013 .8 ed 06:00 MCH RBC 28.7 pg 27-31.2 complet Qn 013 ed Auto 06:00 MEAN 31.1 31.8-35 complet CORPUSC 013 g/dl .4 ed ULAR 06:00 HGB CONC RDW RBC 16.8 % 11.5-17 complet Auto 013 .5 ed 06:00 Platele 104 142-424 complet t Bld 013 K/mm3 ed Ql 06:00 Manual MEAN 9.0 fl 7.4-10. complet PLATELE 013 4 ed T 06:00 VOLUME Granulo 46.6 % 37.0-80 complet cytes 013 .0 ed Fr Bld 06:00 Auto LYMPH % 37.5 % 10-50.0 complet 013 ed 06:00 Monocyt 8.5 % 1.7-9.3 complet es Fr 013 ed Bld 06:00 Auto Eosinop 6.9 % 0.1-12. complet hil Fr 013 0 ed Bld 06:00 Auto Basophi 0.5 % 0.1-2.0 complet ls Fr 013 ed Bld 06:00 Auto Granulo 1.4 1.8-7.8 complet cytes # 013 K/mm3 ed Bld 06:00 Auto Lymphoc 1.1 0.7-4.5 complet ytes Fr 013 K/mm3 ed Bld 06:00 Auto Monocyt 0.3 0.1-1.0 complet es # 013 K/mm3 ed Bld 06:00 Auto Eosinop 0.2 0.0-0.4 complet hil # 013 K/mm3 ed Bld 06:00 Auto Basophi 0.0 0-0.2 complet ls # 013 K/MM3 ed Bld 06:00 Auto CREATININE (11-15-2012 13:30) Creat 1.0 0.6-1.0 complet SerPl-m 013 mg/dL ed Cnc 13:30 ESTIMAT 104 50-200 complet ED 013 ML/MIN ed CREATIN 13:30 INE CLEARAN CE GFR 59 59- complet (ESTIMA 013 ML/MIN ed WILFREDO) 13:30 COMPREHENSIVE METABOLIC PANEL (11-15-2012 13:30) Glucose 90 74-106 complet 013 mg/dL ed Bld-mCn 13:30 c BUN 9 mg/dL 7-18 complet Bld-mCn 013 ed c 13:30 Creat 1.0 0.6-1.0 complet SerPl-m 013 mg/dL ed Cnc 13:30 ESTIMAT 104 50-200 complet ED 013 ML/MIN ed CREATIN 13:30 INE CLEARAN CE GFR 59 59- complet (ESTIMA 013 ML/MIN ed WILFREDO) 13:30 Sodium 143 136-145 complet SerPl-s 013 mmoL/L ed Cnc 13:30 Potassi 4.0 3.5-5.1 complet um 013 mmoL/L ed SerPl-s 13:30 Cnc Chlorid 107 98-107 complet e 013 mmoL/L ed SerPl-s 13:30 Cnc CO2 09-04-2 33 21.0-32 complet SerPl-s 013 mmoL/L .0 ed Cnc 13:30 Calcium -04-2 7.4 8.5-10. complet 013 mg/dL 1 ed SerPl-m 13:30 Cnc Prot 04-2 5.7 6.4-8.2 complet SerPl-m 013 gm/dL ed Cnc 13:30 Albumin 04-2 2.9 3.4-5.0 complet 013 gm/dL ed SerPl-m 13:30 Cnc Globuli 11-15-2 2.8 1.3-3.2 complet n 013 gm/dL ed Ser-mCn 13:30 c Albumin 11-15-2 1.0 UNK 1.1-1.8 complet /Glob 013 ed SerPl-m 13:30 Rto Bilirub 11-15-2 0.2 0.2-1.0 complet 013 mg/dL ed SerPl-m 13:30 Cnc AST 11-15-2 8 U/L 15-37 complet SerPl-c 013 ed Cnc 13:30 ALT 04-2 24 U/L 30-65 complet SerPl-c 013 ed Cnc 13:30 ALP 04-2 110 U/L 50-136 complet SerPl-c 013 ed Cnc 13:30 CBC with AUTO DIFF (11-15-2012 13:30) WBC # -04-2 3.8 4.8-10. complet Bld 013 K/MM3 8 ed Auto 13:30 RBC # -04-2 3.51 4.2-5.4 complet Bld 013 M/mm3 ed Auto 13:30 Hgb 04-2 10.0 12.2-16 complet Bld-mCn 013 g/dL .2 ed c 13:30 Hct Fr 04-2 32.3 % 37.0-47 complet Bld 013 .0 ed 13:30 MCV RBC 04-2 91.8 fl 82.2-97 complet 013 .8 ed 13:30 MCH RBC 04-2 28.5 pg 27-31.2 complet Qn 013 ed Auto 13:30 MEAN 04-2 31.0 31.8-35 complet CORPUSC 013 g/dl .4 ed ULAR 13:30 HGB CONC RDW RBC 09-04-2 17.2 % 11.5-17 complet Auto 013 .5 ed 13:30 Platele -04-2 130 142-424 complet t Bld 013 K/mm3 ed Ql 13:30 Manual MEAN 2 10.2 fl 7.4-10. complet PLATELE 013 4 ed T 13:30 VOLUME Granulo 11-15-2 51.9 % 37.0-80 complet cytes 013 .0 ed Fr Bld 13:30 Auto LYMPH % -04-2 32.7 % 10-50.0 complet 013 ed 13:30 Monocyt -04-2 6.5 % 1.7-9.3 complet es Fr 013 ed Bld 13:30 Auto Eosinop -04-2 8.3 % 0.1-12. complet hil Fr 013 0 ed Bld 13:30 Auto Basophi -04-2 0.6 % 0.1-2.0 complet ls Fr 013 ed Bld 13:30 Auto Granulo 04-2 2.0 1.8-7.8 complet cytes # 013 K/mm3 ed Bld 13:30 Auto Lymphoc -04-2 1.2 0.7-4.5 complet ytes Fr 013 K/mm3 ed Bld 13:30 Auto Monocyt -04-2 0.3 0.1-1.0 complet es # 013 K/mm3 ed Bld 13:30 Auto Eosinop -04-2 0.3 0.0-0.4 complet hil # 013 K/mm3 ed Bld 13:30 Auto Basophi -04-2 0.0 0-0.2 complet ls # 013 K/MM3 ed Bld 13:30 Auto ESR Bld Qn 15M (11-15-2012 13:30) ESR Bld 09-04-2 21 0-20 complet Qn 15M 013 mm/hr ed 13:30 Encounters Encounter Start End Date Code Location Performer Type Date Inpatient KEVIN Tovar MD (IN) 3 15:44 3 15:54 [facility] Emergency SELENA ESCAMILLA MD (ER) 3 18:10 3 20:29 [facility] Emergency SELENA Parker MD (ER) 3 20:13 3 00:29 [facility] Emergency SELENA FREEMAN (ER) 3 14:26 3 14:39 [facility] MOHAMED Inpatient KEVIN Wall MD (IN) 3 10:05 3 11:10 [facility]
--- OUTSIDE RECORDS SUMMARY | 2016-10-09 15:57 | External Medical Summary Rpt ---
Author Author , CONNOR Vivas CONNOR Address Unknown Phone [email or web address] Care Industrial Relations Manager Name Role Phone Reg Tovar MD, Unavailable Unavailable Reg Wall MD, Unavailable Unavailable Hero Gonzalez MD, Unavailable Unavailable Sherri Gonzalez MD Purpose Continuity of Care Document - 11-15-2012 through 2016 Problems Code Diagnosis DOS Provider Status 244.9 Hypothyroid [facility] 272.4 Hyperlipide [facility] [id number] Fever [facility] 401.9 Essential Calder hypertensio [facility] n [facility] [id number] Obesity [facility] 457.1 Chronic [facility] lymphedema [facility] [id number] Active [facility] 682.6 Cellulitis Calder and abscess [facility] leg [facility] 682.9 Cellulitis [facility] 780.96 Chronic [facility] [id number] [facility] I10 ESSENTIAL (PRIMARY) HYPERTENSIO N I63.9 [...] RO 07 -0 SE 90 8- [place] 07 20 ng DE 32 13 er [...] RO 40 -0 SE 96 7- [place] 10 20 ng DE 20 13 er [...] ti ML ve Sy ri ng e RI 00 10 3 No OM 64 -0 [...] ti L ve 25 MG TA B RI 00 10 1 No OT 00 -0 [...] RO 40 -0 SE 96 4- [place] 10 20 ng DE 20 13 er 4 40 Ac ti MG ve /4 ML AL RI 51 09 1 No OM 07 -0 [...] RO 07 -0 SE 90 5- [place] 07 20 ng DE 32 13 er [...] MC ti G ve TA BL ET RI 00 09 2 No OM 64 -0 [...] D ve DR 40 MG TA B RI 51 09 3 No AV 07 -0 [...] K/MM3 ed Bld 06:35 Auto Glucose BldC [facility]comtr[facility] (12-18-2012 18:08) Glucose 97 70-110 complet BldC 013 mg/dl ed Glucomt 18:08 r-[facility] URINALYSIS/COMPLETE (12-18-2012 17:00) URINE LIGHT YELLOW complet [...] K/MM3 ed Bld 15:50 Auto Glucose dC [facility] (12-17-2012 19:50) Glucose 108 70-110 complet BldC 013 mg/dl ed Glucomt 19:50 r-[facility] COMPREHENSIVE METABOLIC PANEL (12-17-2012 18:30) Glucose 71 [...] 013 mcg/mL .0 ed Trough 08:30 SerPl-m [facility] CREATININE (11-18-2012 08:30) Creat 1.0 0.6-1.0 complet SerPl-m 013 mg/dL ed Cnc 08:30 Creat 104 50-200 complet Cl 013 ML/MIN ed predict 08:30 ed SerPl C-G-vRa te GFR/BSA 59 59- complet .pred 013 ML/MIN ed SerPl 08:30 Schwart z-vRate Vancomycin Trough SerPl-mCnc (11-16-2012 14:30) Vancomy 18.7 10.0-20 complet margy 013 mcg/mL .0 ed Trough 14:30 SerPl-m [facility] BASIC METABOLIC PANEL (11-16-2012 06:00) Glucose 81 [...] Tovar MD (IN) 3 15:44 3 15:54 [facility] Emergency SELENA ECSAMILLA MD (ER) 3 18:10 3 20:29 [facility] Emergency SELENA Parker MD (ER) 3 20:13 3 00:29 [facility] Emergency SELENA FREEMAN (ER) 3 14:26 3 14:39 [facility] MOHAMED Inpatient KEVIN Wall MD (IN) 3 10:05 3 11:10 [facility]
--- OUTSIDE RECORDS SUMMARY | 2016-10-09 15:58 | External Medical Summary Rpt ---
Author Author CONNOR Address Unknown Phone [email or web address] Purpose Continuity of Care Document - through 2016
--- OUTSIDE RECORDS SUMMARY | 2016-10-09 15:58 | External Medical Summary Rpt ---
Demographics Preferred Language Luxembourgish Marital Status Unknown Sabianism Affiliation Unknown Race Unknown Ethnic Group Unknown Author Author , CONNOR RYAN Address Unknown Phone Immunization Unable to retrieve immunization data due to connection failure with Immunization Registry. Please try again later.
--- OUTSIDE RECORDS SUMMARY | 2016-10-09 15:58 | External Medical Summary Rpt ---
Author Author CONNOR Address Unknown Phone [email or web address] Purpose Continuity of Care Document - through 2016
--- OUTSIDE RECORDS SUMMARY | 2016-10-09 15:58 | External Medical Summary Rpt ---
Demographics Preferred Language Irish Marital Status Unknown Baptism Affiliation Unknown Race Unknown Ethnic Group Unknown Author Author , CONNOR RYAN Address Unknown Phone Immunization Unable to retrieve immunization data due to connection failure with Immunization Registry. Please try again later.
--- OUTSIDE RECORDS SUMMARY | 2016-10-09 15:59 | External Medical Summary Rpt ---
Author Author [facility] [employer] [employer] Organization [facility] [employer] Address Unknown Phone Unavailable Results Vancomycin [Mass/volume] in Serum or Plasma --trough Observa Value Referen Units Interpr Notes Date tion ce etation Range Vancomyci 10.0 - mcg/mL Low RESULTS Sep 13 n 20.0 CALLED TO 2017 8:25 [Mass/vol AM ume] in PHARMACIS Serum or T: EFRAIN Plasma --trough H. [id number] [facility] Basic metabolic panel in Blood Observa Value Referen Units Interpr Notes Date tion ce etation Range Urea 7 - 18 mg/dL Normal No Sep 13 nitrogen informati 2016 8:25 [Mass/vol on in AM ume] in source Serum or data Plasma Calcium 8.5 - mg/dL Low No Sep 13 [Mass/vol 10.1 informati 2016 8:25 ume] in on in AM Serum or source Plasma data Chloride 98 - 107 mmoL/L Normal No Sep 13 [Moles/vo informati 2016 8:25 lume] in on in AM Serum or source Plasma data Carbon 21.0 - mmoL/L High No Sep 13 dioxide, 32.0 informati 2016 8:25 total on in AM [Moles/vo source lume] in data Serum or Plasma Creatinin 0.55 - mg/dL Normal No Sep 13 e 1.02 informati 2016 8:25 [Mass/vol on in AM ume] in source Serum or data Plasma Creatinin 50 - 200 ML/MIN Normal No Sep 13 e renal informati 2016 8:25 clearance on in AM source predicted data by Cockcroft -Gault formula Estimated 59- ML/MIN Low REFERENCE Sep 13 RANGE: 2017 8:25 glomerula >60 AM r ML/MIN/1. filtratio 73 SQUARE n rate METERSIf (GF this patient is -A merican, then multiply theresult by 1.210. Glucose 74 - 106 mg/dL Normal No [place] 3 [Mass/vol informati 2017 8:25 ume] in on in AM Serum or source Plasma data Potassium 3.5 - 5.1 mmoL/L Normal No Sep 13 informati 2016 8:25 [Moles/vo on in AM lume] in source Serum or data Plasma Sodium 136 - 145 mmoL/L Normal No Sep 13 [Moles/vo informati 2016 8:25 lume] in on in AM Serum or source Plasma data CBC W Auto Differential panel in Blood Observa Value Referen Units Interpr Notes Date tion ce etation Range Basophils 0 - 0.2 K/MM3 Normal No Sep 13 informati 2016 8:25 [#/volume on in AM ] in source Blood by data Automated count Basophils 0.1 - 2.0 % Normal No Sep 13 / informati 2016 8:25 leukocyte on in AM s in source Blood by data Automated count Eosinophi 0.0 - 0.4 K/mm3 Normal No Sep 13 ls informati 2016 8:25 [#/volume on in AM ] in source Blood by data Automated count Eosinophi 0.1 - % Normal No Sep 13 ls/100 12.0 informati 2016 8:25 leukocyte on in AM s in source Blood by data Automated count Granulocy 1.8 - 7.8 K/mm3 Normal No Sep 13 ruth informati 2016 8:25 [#/volume on in AM ] in source Blood by data Automated count Granulocy 37.0 - % Normal No Sep 13 ruth/100 80.0 informati 2016 8:25 leukocyte on in AM s in source Blood by data Automated count Hematocri 37.0 - % Low No Sep 13 t [Volume 47.0 informati 2016 8:25 on in AM Fraction] source of Blood data Hemoglobi 12.2 - g/dL Low No Sep 13 n 16.2 informati 2016 8:25 [Mass/vol on in AM ume] in source Blood data Lymphocyt 0.7 - 4.5 K/mm3 Normal No Sep 13 es informati 2016 8:25 [#/volume on in AM ] in source Unspecifi data ed specimen by Automated count Lymphocyt 10 - 50.0 % Normal No Sep 13 es informati 2016 8:25 [#/volume on in AM ] in source Unspecifi data ed specimen by Automated count Erythrocy 27 - 31.2 pg Normal No Sep 13 te mean informati 2016 8:25 corpuscul on in AM ar source hemoglobi data n [Entitic mass] Erythrocy 31.8 - g/dl Low No Sep 13 te mean 35.4 informati 2016 8:25 corpuscul on in AM ar source hemoglobi data n concentra tion [Mass/vol ume] by Automated count Erythrocy 82.2 - fl Normal No Sep 13 te mean 97.8 informati 2016 8:25 corpuscul on in AM ar volume source [Entitic data volume] by Automated count Monocytes 0.1 - 1.0 K/mm3 Normal No Sep 13 informati 2016 8:25 [#/volume on in AM ] in source Blood by data Automated count Monocytes 1.7 - 9.3 % Normal No Sep 13 informati 2016 8:25 leukocyte on in AM s in source Blood by data Automated count Platelet 7.4 - fl Normal No Sep 13 mean 10.4 informati 2016 8:25 volume on in AM [Entitic source volume] data in Blood by Automated count Platelets 142 - 424 K/mm3 Normal No Sep 13 informati 2016 8:25 [#/volume on in AM ] in source Blood data Erythrocy 4.2 - 5.4 M/mm3 Low No Sep 13 ruth informati 2016 8:25 [#/volume on in AM ] in source Amniotic data fluid Erythrocy 11.5 - % Normal No Sep 13 te 17.5 informati 2016 8:25 distribut on in AM ion width source [Entitic data volume] by Automated count Leukocyte 4.8 - K/MM3 Low No Sep 13 s 10.8 informati 2016 8:25 [#/volume on in AM ] in source Blood data Thyrotropin [Units/volume] in Serum or Plasma Observa Value Referen Units Interpr Notes Date tion ce etation Range Thyrotrop 0.358 - uIU/ml No No Sep 12 in 3.740 informati informati 2016 6:05 [Units/vo on in on in AM lume] in source source Serum or data data Plasma CBC W Auto Differential panel in Blood Observa Value Referen Units Interpr Notes Date tion ce etation Range Basophils 0 - 0.2 K/MM3 Normal No Sep 12 informati 2016 6:05 [#/volume on in AM ] in source Blood by data Automated count Basophils 0.1 - 2.0 % Normal No [place] 2 /100 informati 2017 6:05 leukocyte on in AM s in source Blood by data Automated count Eosinophi 0.0 - 0.4 K/mm3 Normal No Sep 12 ls informati 2016 6:05 [#/volume on in AM ] in source Blood by data Automated count Eosinophi 0.1 - % Normal No Sep 12 ls/100 12.0 informati 2016 6:05 leukocyte on in AM s in source Blood by data Automated count Granulocy 1.8 - 7.8 K/mm3 Normal No Sep 12 ruth informati 2016 6:05 [#/volume on in AM ] in source Blood by data Automated count Granulocy 37.0 - % Normal No Sep 12 ruth/100 80.0 informati 2016 6:05 leukocyte on in AM s in source Blood by data Automated count Hematocri 37.0 - % Low No Sep 12 t [Volume 47.0 informati 2016 6:05 on in AM Fraction] source of Blood data Hemoglobi 12.2 - g/dL Low No Sep 12 n 16.2 informati 2016 6:05 [Mass/vol on in AM ume] in source Blood data Lymphocyt 0.7 - 4.5 K/mm3 Normal No Sep 12 es informati 2017 6:05 [#/volume on in AM ] in source Unspecifi data ed specimen by Automated count Lymphocyt 10 - 50.0 % Normal No Sep 12 es informati 2016 6:05 [#/volume on in AM ] in source Unspecifi data ed specimen by Automated count Erythrocy 27 - 31.2 pg Normal No Sep 12 te mean informati 2016 6:05 corpuscul on in AM ar source hemoglobi data n [Entitic mass] Erythrocy 31.8 - g/dl Normal No Sep 12 te mean 35.4 informati 2017 6:05 corpuscul on in AM ar source hemoglobi data n concentra tion [Mass/vol ume] by Automated count Erythrocy 82.2 - fl Normal No Sep 12 te mean 97.8 informati 2016 6:05 corpuscul on in AM ar volume source [Entitic data volume] by Automated count Monocytes 0.1 - 1.0 K/mm3 Normal No Sep 12 informati 2017 6:05 [#/volume on in AM ] in source Blood by data Automated count Monocytes 1.7 - 9.3 % Normal No Sep 12 /100 informati 2017 6:05 leukocyte on in AM s in source Blood by data Automated count Platelet 7.4 - fl Normal No Sep 12 mean 10.4 informati 2016 6:05 volume on in AM [Entitic source volume] data in Blood by Automated count Platelets 142 - 424 K/mm3 Normal No Sep 12 inform2016 6:05 [#/volume on in AM ] in source Blood data Erythrocy 4.2 - 5.4 M/mm3 Low No Sep 12 ruth ati 2016 6:05 [#/volume on in AM ] in source Amniotic data fluid Erythrocy 11.5 - % Normal No Sep 12 te 17.5 informati 2016 6:05 distribut on in AM ion width source [Entitic data volume] by Automated count Leukocyte 4.8 - K/MM3 Low No Sep 12 s 10.8 informati 2016 6:05 [#/volume on in AM ] in source Blood data CBC W Auto Differential panel in Blood Observa Value Referen Units Interpr Notes Date tion ce etation Range Basophils 0 - 0.2 K/MM3 Normal No Sep 112016 [#/volume on in 11:15 PM ] in source Blood by data Automated count Basophils 0.1 - 2.0 % Normal No Sep 11 /100 inform2016 leukocyte on in 11:15 PM s in source Blood by data Automated count Eosinophi 0.0 - 0.4 K/mm3 Normal No Sep 11 ls ati 2016 [#/volume on in 11:15 PM ] in source Blood by data Automated count Eosinophi 0.1 - % Normal No Sep 11 ls/100 12.0 inform2016 leukocyte on in 11:15 PM s in source Blood by data Automated count Granulocy 1.8 - 7.8 K/mm3 Normal No Sep 11 ruth inform2016 [#/volume on in 11:15 PM ] in source Blood by data Automated count Granulocy 37.0 - % Normal No Sep 11 ruth/100 80.0 informati 2016 leukocyte on in 11:15 PM s in source Blood by data Automated count Hematocri 37.0 - % Normal No Sep 11 t [Volume 47.0 informati 2016 on in 11:15 PM Fraction] source of Blood data Hemoglobi 12.2 - g/dL Normal No Sep 11 n 16.2 2016 [Mass/vol on in 11:15 PM ume] in source Blood data Lymphocyt 0.7 - 4.5 K/mm3 Normal No Sep 11 es informati 2016 [#/volume on in 11:15 PM ] in source Unspecifi data ed specimen by Automated count Lymphocyt 10 - 50.0 % Normal No Sep 11 es inform2016 [#/volume on in 11:15 PM ] in source Unspecifi data ed specimen by Automated count Erythrocy 27 - 31.2 pg Normal No Sep 11 te mean 2016 corpuscul on in 11:15 PM ar source hemoglobi data n [Entitic mass] Erythrocy 31.8 - g/dl Low No Sep 11 te mean 35.4 inform2016 corpuscul on in 11:15 PM ar source hemoglobi data n concentra tion [Mass/vol ume] by Automated count Erythrocy 82.2 - fl Normal No Sep 11 te mean 97.8 inform2016 corpuscul on in 11:15 PM ar volume source [Entitic data volume] by Automated count Monocytes 0.1 - 1.0 K/mm3 Normal No Sep 11 informati 2016 [#/volume on in 11:15 PM ] in source Blood by data Automated count Monocytes 1.7 - 9.3 % Normal No Sep 11 /100 inform2016 leukocyte on in 11:15 PM s in source Blood by data Automated count Platelet 7.4 - fl Normal No Sep 11 mean 10.4 inform2016 volume on in 11:15 PM [Entitic source volume] data in Blood by Automated count Platelets 142 - 424 K/mm3 Normal No Sep 11 inform2016 [#/volume on in 11:15 PM ] in source Blood data Erythrocy 4.2 - 5.4 M/mm3 Normal No Sep 11 ruth informati 2016 [#/volume on in 11:15 PM ] in source Amniotic data fluid Erythrocy 11.5 - % Normal No Sep 11 te 17.5 informati 2016 distribut on in 11:15 PM ion width source [Entitic data volume] by Automated count Leukocyte 4.8 - K/MM3 Normal No Sep 11 s 10.8 informati 2016 [#/volume on in 11:15 PM ] in source Blood data Lactate [Moles/volume] in Blood Observa Value Referen Units Interpr Notes Date tion ce etation Range Lactate 0.4 - 2.0 mmol/L Normal No Sep 11 [Moles/vo informati 2017 lume] in on in 11:15 PM Blood source data Lactate [Moles/volume] in Blood Observa Value Referen Units Interpr Notes Date tion ce etation Range Lactate 0.4 - 2.0 mmol/L Normal No Sep 11 [Moles/vo informati 2017 lume] in on in 11:15 PM Blood source data Comprehensive metabolic 2000 panel in Serum or Plasma Observa Value Referen Units Interpr Notes Date tion ce etation Range Albumin/G 1.1 - 1.8 No Low No Sep 11 lobulin informati informati 2017 [Mass on in on in 11:15 PM ratio] in source source Serum or data data Plasma Albumin 3.4 - 5.0 gm/dL Normal No Sep 11 [Mass/vol informati 2016 ume] in on in 11:15 PM Serum or source Plasma data Alkaline 46 - 116 U/L Normal No Sep 11 phosphata informati 2016 se on in 11:15 PM [Enzymati source c data activity/ volume] in Serum or Plasma Bilirubin 0.2 - 1.0 mg/dL Normal No Sep 11 .total informati 2016 [Mass/vol on in 11:15 PM ume] in source Serum or data Plasma Urea 7 - 18 mg/dL Normal No Sep 11 nitrogen informati 2016 [Mass/vol on in 11:15 PM ume] in source Serum or data Plasma Calcium 8.5 - mg/dL Normal No Sep 11 [Mass/vol 10.1 informati 2017 ume] in on in 11:15 PM Serum or source Plasma data Chloride 98 - 107 mmoL/L Normal No Sep 11 [Moles/vo informati 2017 lume] in on in 11:15 PM Serum or source Plasma data Carbon 21.0 - mmoL/L Normal No Sep 11 dioxide, 32.0 informati 2017 total on in 11:15 PM [Moles/vo source lume] in data Serum or Plasma Creatinin 0.55 - mg/dL Normal No Sep 11 e 1.02 informati 2017 [Mass/vol on in 11:15 PM ume] in source Serum or data Plasma Creatinin 50 - 200 ML/MIN Normal No Sep 11 e renal informati 2017 clearance on in 11:15 PM source predicted data by Cockcroft -Gault formula Estimated 59- ML/MIN No REFERENCE Sep 11 informati RANGE: 2017 glomerula on in >60 11:15 PM r source ML/MIN/1. filtratio data 73 SQUARE n rate METERSIf (GF this patient is -A merican, then multiply theresult by 1.210. Globulin 1.3 - 3.2 gm/dL High No Sep 11 [Mass/vol informati 2017 ume] in on in 11:15 PM Serum source data Glucose 74 - 106 mg/dL Normal No Sep 11 [Mass/vol informati 2017 ume] in on in 11:15 PM Serum or source Plasma data Potassium 3.5 - 5.1 mmoL/L Normal No Sep 11 informati 2016 [Moles/vo on in 11:15 PM lume] in source Serum or data Plasma Sodium 136 - 145 mmoL/L Normal No Sep 11 [Moles/vo informati 2017 lume] in on in 11:15 PM Serum or source Plasma data Aspartate 15 - 37 U/L Normal No Sep 11 informati 2017 aminotran on in 11:15 PM sferase source [Enzymati data c activity/ volume] in Serum or Plasma Alanine 12 - 78 U/L Normal No Sep 11 aminotran informati 2016 sferase on in 11:15 PM [Enzymati source c data activity/ volume] in Serum or Plasma Protein 6.4 - 8.2 gm/dL Normal No Sep 11 [Mass/vol informati 2017 ume] in on in 11:15 PM Serum or source Plasma data Comprehensive metabolic 2000 panel in Serum or Plasma Observa Value Referen Units Interpr Notes Date tion ce etation Range Albumin/G 1.1 - 1.8 No Low No Sep 11 lobulin informati informati 2016 [Mass on in on in 11:15 PM ratio] in source source Serum or data data Plasma Albumin 3.4 - 5.0 gm/dL Normal No Sep 11 [Mass/vol informati 2017 ume] in on in 11:15 PM Serum or source Plasma data Alkaline 46 - 116 U/L Normal No Sep 11 phosphata informati 2017 se on in 11:15 PM [Enzymati source c data activity/ volume] in Serum or Plasma Bilirubin 0.2 - 1.0 mg/dL Normal No Sep 11 .total informati 2017 [Mass/vol on in 11:15 PM ume] in source Serum or data Plasma Urea 7 - 18 mg/dL Normal No Sep 11 nitrogen informati 2017 [Mass/vol on in 11:15 PM ume] in source Serum or data Plasma Calcium 8.5 - mg/dL Normal No Sep 11 [Mass/vol 10.1 informati 2016 ume] in on in 11:15 PM Serum or source Plasma data Chloride 98 - 107 mmoL/L Normal No Sep 11 [Moles/vo informati 2017 lume] in on in 11:15 PM Serum or source Plasma data Carbon 21.0 - mmoL/L Normal No Sep 11 dioxide, 32.0 informati 2017 total on in 11:15 PM [Moles/vo source lume] in data Serum or Plasma Creatinin 0.55 - mg/dL Normal No Sep 11 e 1.02 informati 2017 [Mass/vol on in 11:15 PM ume] in source Serum or data Plasma Creatinin 50 - 200 ML/MIN Normal No Sep 11 e renal informati 2017 clearance on in 11:15 PM source predicted data by Cockcroft -Gault formula Estimated 59- ML/MIN No REFERENCE Sep 11 informati RANGE: 2017 glomerula on in >60 11:15 PM r source ML/MIN/1. filtratio data 73 SQUARE n rate METERSIf (GF this patient is -A merican, then multiply theresult by 1.210. Globulin 1.3 - 3.2 gm/dL High No Sep 11 [Mass/vol informati 2017 ume] in on in 11:15 PM Serum source data Glucose 74 - 106 mg/dL Normal No Sep 11 [Mass/vol informati 2017 ume] in on in 11:15 PM Serum or source Plasma data Potassium 3.5 - 5.1 mmoL/L Normal No Sep 11 informati 2016 [Moles/vo on in 11:15 PM lume] in source Serum or data Plasma Sodium 136 - 145 mmoL/L Normal No Sep 11 [Moles/vo informati 2017 lume] in on in 11:15 PM Serum or source Plasma data Aspartate 15 - 37 U/L Normal No Sep 11 informati 2016 aminotran on in 11:15 PM sferase source [Enzymati data c activity/ volume] in Serum or Plasma Alanine 12 - 78 U/L Normal No Sep 11 aminotran informati 2016 sferase on in 11:15 PM [Enzymati source c data activity/ volume] in Serum or Plasma Protein 6.4 - 8.2 gm/dL Normal No Sep 11 [Mass/vol informati 2017 ume] in on in 11:15 PM Serum or source Plasma data Comprehensive metabolic 2000 panel in Serum or Plasma Observa Value Referen Units Interpr Notes Date tion ce etation Range Albumin/G 1.1 - 1.8 No Low No Sep 11 lobulin informati informati 2016 [Mass on in on in 11:15 PM ratio] in source source Serum or data data Plasma Albumin 3.4 - 5.0 gm/dL Normal No Sep 11 [Mass/vol informati 2016 ume] in on in 11:15 PM Serum or source Plasma data Alkaline 46 - 116 U/L Normal No Sep 11 phosphata informati 2016 se on in 11:15 PM [Enzymati source c data activity/ volume] in Serum or Plasma Bilirubin 0.2 - 1.0 mg/dL Normal No Sep 11 .total informati 2016 [Mass/vol on in 11:15 PM ume] in source Serum or data Plasma Urea 7 - 18 mg/dL Normal No Sep 11 nitrogen informati 2016 [Mass/vol on in 11:15 PM ume] in source Serum or data Plasma Calcium 8.5 - mg/dL Normal No Sep 11 [Mass/vol 10.1 informati 2016 ume] in on in 11:15 PM Serum or source Plasma data Chloride 98 - 107 mmoL/L Normal No Sep 11 [Moles/vo informati 2016 lume] in on in 11:15 PM Serum or source Plasma data Carbon 21.0 - mmoL/L Normal No Sep 11 dioxide, 32.0 informati 2017 total on in 11:15 PM [Moles/vo source lume] in data Serum or Plasma Creatinin 0.55 - mg/dL Normal No Sep 11 e 1.02 informati 2016 [Mass/vol on in 11:15 PM ume] in source Serum or data Plasma Creatinin 50 - 200 ML/MIN Normal No Sep 11 e renal informati 2017 clearance on in 11:15 PM source predicted data by Cockcroft -Gault formula Estimated 59- ML/MIN No REFERENCE Sep 11 informati RANGE: 2017 glomerula on in >60 11:15 PM r source ML/MIN/1. filtratio data 73 SQUARE n rate METERSIf (GF this patient is -A merican, then multiply theresult by 1.210. Globulin 1.3 - 3.2 gm/dL High No Sep 11 [Mass/vol informati 2017 ume] in on in 11:15 PM Serum source data Glucose 74 - 106 mg/dL Normal No Sep 11 [Mass/vol informati 2016 ume] in on in 11:15 PM Serum or source Plasma data Potassium 3.5 - 5.1 mmoL/L Normal No Sep 112016 [Moles/vo on in 11:15 PM lume] in source Serum or data Plasma Sodium 136 - 145 mmoL/L Normal No Sep 11 [Moles/vo informati 2016 lume] in on in 11:15 PM Serum or source Plasma data Aspartate 15 - 37 U/L Normal No Sep 112016 aminotran on in 11:15 PM sferase source [Enzymati data c activity/ volume] in Serum or Plasma Alanine 12 - 78 U/L Normal No Sep 11 aminotran 2016 sferase on in 11:15 PM [Enzymati source c data activity/ volume] in Serum or Plasma Protein 6.4 - 8.2 gm/dL Normal No Sep 11 [Mass/vol informati 2016 ume] in on in 11:15 PM Serum or source Plasma data CBC W Auto Differential panel in Blood Observa Value Referen Units Interpr Notes Date tion ce etation Range Basophils 0 - 0.2 K/MM3 Normal No Sep 112016 [#/volume on in 11:15 PM ] in source Blood by data Automated count Basophils 0.1 - 2.0 % Normal No Sep 11 /2016 leukocyte on in 11:15 PM s in source Blood by data Automated count Eosinophi 0.0 - 0.4 K/mm3 Normal No Sep 11 ls 2016 [#/volume on in 11:15 PM ] in source Blood by data Automated count Eosinophi 0.1 - % Normal No Sep 11 ls/100 12.0 2016 leukocyte on in 11:15 PM s in source Blood by data Automated count Granulocy 1.8 - 7.8 K/mm3 Normal No Sep 11 ruth 2016 [#/volume on in 11:15 PM ] in source Blood by data Automated count Granulocy 37.0 - % Normal No Sep 11 ruth/100 80.0 2016 leukocyte on in 11:15 PM s in source Blood by data Automated count Hematocri 37.0 - % Normal No Sep 11 t [Volume 47.0 2016 on in 11:15 PM Fraction] source of Blood data Hemoglobi 12.2 - g/dL Normal No Sep 11 n 16.2 informati 2016 [Mass/vol on in 11:15 PM ume] in source Blood data Lymphocyt 0.7 - 4.5 K/mm3 Normal No Sep 11 es inform2016 [#/volume on in 11:15 PM ] in source Unspecifi data ed specimen by Automated count Lymphocyt 10 - 50.0 % Normal No Sep 11 es inform2016 [#/volume on in 11:15 PM ] in source Unspecifi data ed specimen by Automated count Erythrocy 27 - 31.2 pg Normal No Sep 11 te mean inform2016 corpuscul on in 11:15 PM ar source hemoglobi data n [Entitic mass] Erythrocy 31.8 - g/dl Low No Sep 11 te mean 35.4 inform2016 corpuscul on in 11:15 PM ar source hemoglobi data n concentra tion [Mass/vol ume] by Automated count Erythrocy 82.2 - fl Normal No Sep 11 te mean 97.8 inform2016 corpuscul on in 11:15 PM ar volume source [Entitic data volume] by Automated count Monocytes 0.1 - 1.0 K/mm3 Normal No Sep 11 informati 2016 [#/volume on in 11:15 PM ] in source Blood by data Automated count Monocytes 1.7 - 9.3 % Normal No Sep 11 /100 2016 leukocyte on in 11:15 PM s in source Blood by data Automated count Platelet 7.4 - fl Normal No Sep 11 mean 10.4 2016 volume on in 11:15 PM [Entitic source volume] data in Blood by Automated count Platelets 142 - 424 K/mm3 Normal No Sep 11 informati 2016 [#/volume on in 11:15 PM ] in source Blood data Erythrocy 4.2 - 5.4 M/mm3 Normal No Sep 11 ruth informati 2016 [#/volume on in 11:15 PM ] in source Amniotic data fluid Erythrocy 11.5 - % Normal No Sep 11 te 17.5 informati 2016 distribut on in 11:15 PM ion width source [Entitic data volume] by Automated count Leukocyte 4.8 - K/MM3 Normal No Sep 11 s 10.8 informati 2016 [#/volume on in 11:15 PM ] in source Blood data CBC W Auto Differential panel in Blood Observa Value Referen Units Interpr Notes Date tion ce etation Range Basophils 0 - 0.2 K/MM3 Normal No Sep 11 informati 2016 [#/volume on in 11:15 PM ] in source Blood by data Automated count Basophils 0.1 - 2.0 % Normal No Sep 11 /100 informati 2016 leukocyte on in 11:15 PM s in source Blood by data Automated count Eosinophi 0.0 - 0.4 K/mm3 Normal No Sep 11 ls informati 2016 [#/volume on in 11:15 PM ] in source Blood by data Automated count Eosinophi 0.1 - % Normal No Sep 11 ls/100 12.0 informati 2016 leukocyte on in 11:15 PM s in source Blood by data Automated count Granulocy 1.8 - 7.8 K/mm3 Normal No Sep 11 ruth informati 2016 [#/volume on in 11:15 PM ] in source Blood by data Automated count Granulocy 37.0 - % Normal No Sep 11 ruth/100 80.0 inform2016 leukocyte on in 11:15 PM s in source Blood by data Automated count Hematocri 37.0 - % Normal No Sep 11 t [Volume 47.0 ati 2016 on in 11:15 PM Fraction] source of Blood data Hemoglobi 12.2 - g/dL Normal No Sep 11 n 16.2 informati 2016 [Mass/vol on in 11:15 PM ume] in source Blood data Lymphocyt 0.7 - 4.5 K/mm3 Normal No Sep 11 es informati 2016 [#/volume on in 11:15 PM ] in source Unspecifi data ed specimen by Automated count Lymphocyt 10 - 50.0 % Normal No Sep 11 es informati 2016 [#/volume on in 11:15 PM ] in source Unspecifi data ed specimen by Automated count Erythrocy 27 - 31.2 pg Normal No Sep 11 te mean 2016 corpuscul on in 11:15 PM ar source hemoglobi data n [Entitic mass] Erythrocy 31.8 - g/dl Low No Sep 11 te mean 35.4 informati 2016 corpuscul on in 11:15 PM ar source hemoglobi data n concentra tion [Mass/vol ume] by Automated count Erythrocy 82.2 - fl Normal No Sep 11 te mean 97.8 inform2016 corpuscul on in 11:15 PM ar volume source [Entitic data volume] by Automated count Monocytes 0.1 - 1.0 K/mm3 Normal No Sep 112016 [#/volume on in 11:15 PM ] in source Blood by data Automated count Monocytes 1.7 - 9.3 % Normal No Sep 112016 leukocyte on in 11:15 PM s in source Blood by data Automated count Platelet 7.4 - fl Normal No Sep 11 mean 10.4 2016 volume on in 11:15 PM [Entitic source volume] data in Blood by Automated count Platelets 142 - 424 K/mm3 Normal No Sep 112016 [#/volume on in 11:15 PM ] in source Blood data Erythrocy 4.2 - 5.4 M/mm3 Normal No Sep 11 ruth 2016 [#/volume on in 11:15 PM ] in source Amniotic data fluid Erythrocy 11.5 - % Normal No Sep 11 te 17.5 2016 distribut on in 11:15 PM ion width source [Entitic data volume] by Automated count Leukocyte 4.8 - K/MM3 Normal No Sep 11 s 10.8 2016 [#/volume on in 11:15 PM ] in source Blood data CBC W Auto Differential panel in Blood Observa Value Referen Units Interpr Notes Date tion ce etation Range Basophils 0 - 0.2 K/MM3 Normal No Sep 112016 [#/volume on in 11:15 PM ] in source Blood by data Automated count Basophils 0.1 - 2.0 % Normal No Sep 112016 leukocyte on in 11:15 PM s in source Blood by data Automated count Eosinophi 0.0 - 0.4 K/mm3 Normal No Sep 11 ls 2016 [#/volume on in 11:15 PM ] in source Blood by data Automated count Eosinophi 0.1 - % Normal No Sep 11 ls/100 12.0 2016 leukocyte on in 11:15 PM s in source Blood by data Automated count Granulocy 1.8 - 7.8 K/mm3 Normal No Sep 11 ruth 2016 [#/volume on in 11:15 PM ] in source Blood by data Automated count Granulocy 37.0 - % Normal No Sep 11 ruth/100 80.0 2016 leukocyte on in 11:15 PM s in source Blood by data Automated count Hematocri 37.0 - % Normal No [place] 1 t [Volume 47.0 informati 2016 on in 11:15 PM Fraction] source of Blood data Hemoglobi 12.2 - g/dL Normal No Sep 11 n 16.2 informati 2016 [Mass/vol on in 11:15 PM ume] in source Blood data Lymphocyt 0.7 - 4.5 K/mm3 Normal No Sep 11 es inform2016 [#/volume on in 11:15 PM ] in source Unspecifi data ed specimen by Automated count Lymphocyt 10 - 50.0 % Normal No Sep 11 es informati 2016 [#/volume on in 11:15 PM ] in source Unspecifi data ed specimen by Automated count Erythrocy 27 - 31.2 pg Normal No Sep 11 te mean inform2016 corpuscul on in 11:15 PM ar source hemoglobi data n [Entitic mass] Erythrocy 31.8 - g/dl Low No Sep 11 te mean 35.4 inform2016 corpuscul on in 11:15 PM ar source hemoglobi data n concentra tion [Mass/vol ume] by Automated count Erythrocy 82.2 - fl Normal No Sep 11 te mean 97.8 inform2016 corpuscul on in 11:15 PM ar volume source [Entitic data volume] by Automated count Monocytes 0.1 - 1.0 K/mm3 Normal No Sep 11 informati 2016 [#/volume on in 11:15 PM ] in source Blood by data Automated count Monocytes 1.7 - 9.3 % Normal No Sep 1 /100 2016 leukocyte on in 11:15 PM s in source Blood by data Automated count Platelet 7.4 - fl Normal No Sep 11 mean 10.4 2016 volume on in 11:15 PM [Entitic source volume] data in Blood by Automated count Platelets 142 - 424 K/mm3 Normal No Sep 11 informati 2016 [#/volume on in 11:15 PM ] in source Blood data Erythrocy 4.2 - 5.4 M/mm3 Normal No Sep 11 ruth informati 2016 [#/volume on in 11:15 PM ] in source Amniotic data fluid Erythrocy 11.5 - % Normal No Sep 11 te 17.5 informati 2016 distribut on in 11:15 PM ion width source [Entitic data volume] by Automated count Leukocyte 4.8 - K/MM3 Normal No Sep 11 s 10.8 informati 2016 [#/volume on in 11:15 PM ] in source Blood data Opiates and Oxycodone(GC/MS),U Observa Value Referen Units Interpr Notes Date tion ce etation Range Oxycodo Negativ Cutoff= No No Test Aug 24 ne/Oxym e 100 informa informa include 2017 orph tion in tion in s 4:04 PM source source Oxycodo data data ne and [employer] honePer formed at: [facility] [id number] [place], [place] [id number] Directo r: Wayne Jalloh MD, Phone: [phone] Codeine Negativ Cutoff= No No No Aug 24 e 100 informa informa informa 2017 tion in tion in tion in 4:04 PM source source source data data data Morphin Negativ Cutoff= No No No Aug 24 e e 100 informa informa informa 2017 tion in tion in tion in 4:04 PM source source source data data data Hydromo Positiv . No Abnorma No Aug 24 rphone e informa l informa 2016 tion in tion in 4:04 PM source source data data Hydromo 682 Cutoff= ng/mL No No Aug 24 rphone 100 informa informa 2017 GC/MS, tion in tion in 4:04 PM Urine source source data data Hydroco Negativ Cutoff= No No No Aug 24 done e 100 informa informa informa 2017 tion in tion in tion in 4:04 PM source source source data data data Opiates Positiv . No Abnorma Opiate Aug 24 e informa l test 2017 tion in include 4:04 PM source s data Codeine , Morphin e, Hydromo rphone, Hydroco done. Drugs identified in Urine by Screen method Observa Value Referen Units Interpr Notes Date tion ce etation Range Positive urine drug screen samples are stored for 7 days. Contact the Lab if confirmation of positives is needed. Ampheta NEGATIV <1000 ng/mL No No Aug 24 mine E informa informa 2016 [Presen tion in tion in 4:04 PM ce] in source source Urine data data by Screen method Barbitura <200 ng/mL No No Aug 24 ruth informati informati 2017 4:04 [Mass/vol on in on in PM ume] in source source Urine by data data Screen method Benzodiaz 200 ng/mL ng/mL No No Aug 13 epines informati informati 2017 4:04 [Mass/vol on in on in PM ume] in source source Serum or data data Plasma by Screen method Cocaine <300 ng/g No No Aug 13 [Mass/vol informati informati 2017 4:04 ume] in on in on in PM Unspecifi source source ed data data specimen Methadone <300 ng/mL No No Aug 24 informati informati 2017 4:04 [Mass/vol on in on in PM ume] in source source Unspecifi data data ed specimen Opiates <300 ng/mL High This is Aug 24 [Mass/vol an 2017 4:04 ume] in UNCONFIRM PM Unspecifi ED ed result. specimen This result is for medicalpu rposes and/or treatment only. Phencycli <25 ng/mL No No Aug 13 dine informati informati 2017 4:04 [Mass/vol on in on in PM ume] in source source Unspecifi data data ed specimen 11-Hydr NEGATIV <50 ng/mL No No Aug 24 oxy E informa informa 2017 delta-9 tion in tion in 4:04 PM source source tetrahy data data drocann abinol [Presen ce] in Unspeci fied specime n
--- OUTSIDE RECORDS SUMMARY | 2016-10-09 15:59 | External Medical Summary Rpt ---
[...] data ne and [employer] honePer formed at: [facility] [id number] [place], [place] [address] Directo r: Wayne Jalloh MD, Phone: [phone] Codeine Negativ Cutoff= No No No Aug [...]
--- NOTE | 2016-10-09 16:28 | Urgent Treatment Center Report ---
History of Present Issue Date/Time Seen by Provider 10/09/16 1626 Visit Reason Pt arrived:Walked Presenting Problem:PT STATES SHE WAS LIFTING A PRESSURE CANNER WHEN SHE THINKS SHE LIFTED IT WRONG AND INJURED HER LEFT FOREARM Location if Accident:Home Onset of symptoms date/time:10/09/16 or onset unknown for: Have you (or family members/close friends) recently traveled outside the [place]? N If Yes, where/when: Have you had exposure to infectious disease within the past month? TB? Other? 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 when she felt something in her arm pop State that she noticed a raised area on her forearm and she got worried that she may have broken something so she came in to get checked ALLERGIES Coded Allergies: Iodinated Contrast Media - Oral and (Mild, 09/12/16) acetaminophen (From DARVOCET-N) (Mild, 01/31/16) propoxyphene (From DARVOCET-N) (Mild, 01/31/16) morphine (10/05/15) Home Medications Active Scripts Furosemide (Furosemide 40MG Tablet) 40 MG FT BID #60 TABLET Ref 2 Prov: 09/13/16 Sulfamethoxazole/Trimethoprim (Bactrim Ds Tablet) 1 EACH PO BID #20 TAB Ref 1 Prov: 09/13/16 Reported Medications DULOXETINE HCL (Cymbalta 60MG) 60 MG PO DAILY Amlodipine Besylate (Amlodipine) 10 MG PO DAILY AMITRIPTYLINE HCL (Amitriptyline HCl) 25 MG PO BID Pregabalin (Lyrica 100Mg) 100 MG PO BID HYDROMORPHONE HCL/PF (Dilaudid 1 MG/Ml Ampul) 1 MG IJ PATIENT CONT PROMETHAZINE HCL (Phenergan 25MG Tab (Geq)) 25 MG PO BID AMITRIPTYLINE HCL (Amitriptyline HCl) 50 MG PO QHS TRAZODONE HCL (Trazodone HCl) 50 MG PO QHS Albuterol Sulfate (Ventolin Hfa) 0.09 MG IH PRN PRN BREATHING #18 Diphenhydramine Hcl (Benadryl 25MG CAP) 25 MG PO PRN PRN ALLERGIES History Medical History General CAD? Yes Angina: Yes [place]: No Hypertension? Yes Hyperlipidemia? No CHF? Yes DVT? No PE? No COPD? Yes Asthma? Yes Anemia? No GERD? Yes Gastric ulcers? No GI Bleed? No Hernia? Yes Thyroid Problems? No Hypothyroidism? No CVA? Yes Seizures? No Diabetes? No Insulin Dependent: No Insulin Pump: No Home FSBS? No Renal Insuffiency? No UTI? Yes Stones? No BPH? No GB Disease: Yes Nephritic Syndrome? No Asplenia? No Hepatitis? No Sickle Cell Disease? No Arthritis? Yes Migraines? Yes Cataracts? No Glaucoma? No MRSA? Yes HIV? No TB? No Anxiety? Yes Depression? Yes Cancer? No More? Yes Additional hx: TIA 01/1996 HYPOGLYCEMIA Immunization HX DT/Tetanus 1-4 Years Ago Flu 2012-FSN Pneumonia Received In Past Surgical Hx Previous Surgery?Y C SECTION GASTRIC BYPASS T&A GREENBERG'S CYST REMOVAL CHOLECYSTECTOMY PICC LINE LEFT ARM PAIN PUMP IMPLANT R HIP LYMPH NODES REMOVED Family History Family HX Diabetes No CAD Yes Hypertension Yes Hyperlipidemia No Cancer Yes TB No Social History Smoking Hx Smoker: Former Smoker Tobacco: Yes Type Cigarettes Packs/day < 1 Pack Alcohol Alcohol: No Review of Systems All Other Systems Reviewed and Negative Physical Exam Vital Signs Vital Signs Date Time Temp Pulse Resp B/P Pulse O2 O2 Flow FiO2 Ox Delivery Rate 10/09 1557 98.8 54 18 168/98 97 General Appearance normal appearance, WD/WN, no apparent distress Respiratory Status Yes: trachea midline, chest symmetrical, non tender chest. No: respiratory distress. 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 No Results/Orders Current Medication Orders Sig/Lucy Start time Last Medication Dose Route Stop Time Status Admin Ketorolac 60 MG ONCE ONE 10/09 1714 CAN Tromethamine IM 10/10 1715 Orders Procedure Date/time Status [facility] STABILIZE JOINT/AREA 10/09 1718 Active XRAY/CT/US XRAY/CT/US XRAY forearm XR interpretation by reviewed by me Xray Results no fracture seen Comment Patient offered something for pain and states that she has a pain pump and did not need anything for pain at this time Departure Departure Time of Disposition 1719 Disposition DC Home or Self Care(routine) Clinical Impression Primary Impression: Forearm sprain Qualifiers: Encounter type: initial encounter Laterality: left Qualified Code: S63.502A - Unspecified sprain of left wrist, initial encounter Condition STABLE Patient Instructions DI for Forearm Muscle Strain, Forearm Muscle Strain Additional Instructions *RICE, Rest the extremity, Ice 15-20 minutes 3-4 times daily, Compress- wear the fabiano wrap as discussed as much as possible to help reduce swelling and pain, Elevate the extremity when at rest *Fabiano wrap is for support and help control swelling, use it except in the shower. Be sure that is not to tight but not to loose either *Elevate when resting *Ibuprofen 600-800mg every 6-8 hours as needed for pain an inflammation. If need something more can take Tylenol in between doses of Ibuprofen to help Immediately follow up for new or worsening of symptoms, or no noticeable improvement over the next 3-5 days Discharge Counseling Counseled pt/family regarding diagnosis, test results, home care, follow up needs at [phone]
--- NOTE | 2016-10-09 16:28 | Urgent Treatment Center Report ---
History of Present Issue Date/Time Seen by Provider 10/09/16 1626 Visit Reason Pt arrived:Walked Presenting Problem:PT STATES SHE WAS LIFTING A PRESSURE CANNER WHEN SHE THINKS SHE LIFTED IT WRONG AND INJURED HER LEFT FOREARM Location if Accident:Home Onset of symptoms date/time:10/09/16 or onset unknown for: Have you (or family members/close friends) recently traveled outside the [place]? N If Yes, where/when: Have you had exposure to infectious disease within the past month? TB? Other? 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 when she felt something in her arm pop State that she noticed a raised area on her forearm and she got worried that she may have broken something so she came in to get checked ALLERGIES Coded Allergies: Iodinated Contrast Media - Oral and (Mild, 09/12/16) acetaminophen (From DARVOCET-N) (Mild, 01/31/16) propoxyphene (From DARVOCET-N) (Mild, 01/31/16) morphine (10/05/15) Home Medications Active Scripts Furosemide (Furosemide 40MG Tablet) 40 MG FT BID #60 TABLET Ref 2 Prov: 09/13/16 Sulfamethoxazole/Trimethoprim (Bactrim Ds Tablet) 1 EACH PO BID #20 TAB Ref 1 Prov: 09/13/16 Reported Medications DULOXETINE HCL (Cymbalta 60MG) 60 MG PO DAILY Amlodipine Besylate (Amlodipine) 10 MG PO DAILY AMITRIPTYLINE HCL (Amitriptyline HCl) 25 MG PO BID Pregabalin (Lyrica 100Mg) 100 MG PO BID HYDROMORPHONE HCL/PF (Dilaudid 1 MG/Ml Ampul) 1 MG IJ PATIENT CONT PROMETHAZINE HCL (Phenergan 25MG Tab (Geq)) 25 MG PO BID AMITRIPTYLINE HCL (Amitriptyline HCl) 50 MG PO QHS TRAZODONE HCL (Trazodone HCl) 50 MG PO QHS Albuterol Sulfate (Ventolin Hfa) 0.09 MG IH PRN PRN BREATHING #18 Diphenhydramine Hcl (Benadryl 25MG CAP) 25 MG PO PRN PRN ALLERGIES History Medical History General CAD? Yes Angina: Yes [place]: No Hypertension? Yes Hyperlipidemia? No CHF? Yes DVT? No PE? No COPD? Yes Asthma? Yes Anemia? No GERD? Yes Gastric ulcers? No GI Bleed? No Hernia? Yes Thyroid Problems? No Hypothyroidism? No CVA? Yes Seizures? No Diabetes? No Insulin Dependent: No Insulin Pump: No Home FSBS? No Renal Insuffiency? No UTI? Yes Stones? No BPH? No GB Disease: Yes Nephritic Syndrome? No Asplenia? No Hepatitis? No Sickle Cell Disease? No Arthritis? Yes Migraines? Yes Cataracts? No Glaucoma? No MRSA? Yes HIV? No TB? No Anxiety? Yes Depression? Yes Cancer? No More? Yes Additional hx: TIA 01/1996 HYPOGLYCEMIA Immunization HX DT/Tetanus 1-4 Years Ago Flu 2012-FSN Pneumonia Received In Past Surgical Hx Previous Surgery?Y C SECTION GASTRIC BYPASS T&A GREENBERG'S CYST REMOVAL CHOLECYSTECTOMY PICC LINE LEFT ARM PAIN PUMP IMPLANT R HIP LYMPH NODES REMOVED Family History Family HX Diabetes No CAD Yes Hypertension Yes Hyperlipidemia No Cancer Yes TB No Social History Smoking Hx Smoker: Former Smoker Tobacco: Yes Type Cigarettes Packs/day < 1 Pack Alcohol Alcohol: No Review of Systems All Other Systems Reviewed and Negative Physical Exam Vital Signs Vital Signs Date Time Temp Pulse Resp B/P Pulse O2 O2 Flow FiO2 Ox Delivery Rate 10/09 1557 98.8 54 18 168/98 97 General Appearance normal appearance, WD/WN, no apparent distress Respiratory Status Yes: trachea midline, chest symmetrical, non tender chest. No: respiratory distress. 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 No Results/Orders Current Medication Orders Sig/Lucy Start time Last Medication Dose Route Stop Time Status Admin Ketorolac 60 MG ONCE ONE 10/09 1714 CAN Tromethamine IM 10/10 1715 Orders Procedure Date/time Status [facility] STABILIZE JOINT/AREA 10/09 1718 Active XRAY/CT/US XRAY/CT/US XRAY forearm XR interpretation by reviewed by me Xray Results no fracture seen Comment Patient offered something for pain and states that she has a pain pump and did not need anything for pain at this time Departure Departure Time of Disposition 1719 Disposition DC Home or Self Care(routine) Clinical Impression Primary Impression: Forearm sprain Qualifiers: Encounter type: initial encounter Laterality: left Qualified Code: S63.502A - Unspecified sprain of left wrist, initial encounter Condition STABLE Patient Instructions DI for Forearm Muscle Strain, Forearm Muscle Strain Additional Instructions *RICE, Rest the extremity, Ice 15-20 minutes 3-4 times daily, Compress- wear the fabiano wrap as discussed as much as possible to help reduce swelling and pain, Elevate the extremity when at rest *Fabiano wrap is for support and help control swelling, use it except in the shower. Be sure that is not to tight but not to loose either *Elevate when resting *Ibuprofen 600-800mg every 6-8 hours as needed for pain an inflammation. If need something more can take Tylenol in between doses of Ibuprofen to help Immediately follow up for new or worsening of symptoms, or no noticeable improvement over the next 3-5 days Discharge Counseling Counseled pt/family regarding diagnosis, test results, home care, follow up needs at [phone]
--- NOTE | 2016-10-09 17:02 | RADIOLOGY REPORT PS360 ---
FOREARM-LT COMPARISON: None HISTORY: Injury to left forearm while lifting TECHNIQUE: AP and lateral views FINDINGS: The radius and ulna appear intact with no evidence of recent or old fracture. There are curious small well-defined opacities in the soft tissues of the forearm of unknown significance. The carpal bones appear normal. IMPRESSION: Left forearm negative for fracture
[2016-10-09 17:34] VITALS: BP 168/98
== END 2016-10-09 17:34 | disposition home or self-care (01) ==
LOC: UTC 15:49
DX: S63.502A Unspecified sprain of left wrist, initial encounter (principal); Y93.G9 Activity, other involving cooking and grilling